=== PATIENT | male | born 1965 | race Caucasian/White ===

== ENCOUNTER → 2024-06-04 11:34 | Outpatient (REF) | payer OTHER, SELFPAY ==
[2024-06-05 14:03] LABS: Mumps Virus IgG Positive; Rubeola (Measles) IgG Positive; Varicella Zoster IgG (VZV) Positive
[2024-06-05 19:10] LABS: Hepatitis B Surface Antibody Positive
[2024-06-05 19:34] LABS: Rubella Positive
[2024-06-06 07:03] LABS: Quantiferon TB Gold Plus Negative (Negative)
== END ==
LOC: OHS 11:34
PROVIDERS: ATTENDING PHYSICIAN Nurse Practitioner Family
DX: Z23 Encounter for immunization (principal)
CPT/HCPCS: 36415; 86480; 86706; 86735; 86762; 86765; 86787

== ENCOUNTER → 2025-02-25 17:36 | Outpatient (REF) | payer BC, SELFPAY | LOC: MRI 3T 17:36 | PROVIDERS: ATTENDING PHYSICIAN Student in an Organized Health Care Education/Training Program | DX: M79.672 Pain in left foot (principal); M72.2 Plantar fascial fibromatosis; M25.572 Pain in left ankle and joints of left foot | CPT/HCPCS: 73718; 73721 ==